=== PATIENT | female | born 1990 | race Caucasian/White ===

== ENCOUNTER 2019-01-28 08:12 | Inpatient (IN) | payer BC ==
[2019-01-28] MEDS ORDERED: LACTATED RINGER'S 1,000 ML IV (09:13)
[2019-01-28] MEDS ORDERED: LIDOCAINE 1% (MPF) 30 ML INJ INJ (09:30)
[2019-01-28] MEDS ORDERED: METHYLERGONOVINE 0.2 MG INJ IM (09:30)
[2019-01-28] MEDS ORDERED: IBUPROFEN 600 MG TAB PO (09:30)
[2019-01-28] MEDS ORDERED: OXYTOCIN 30 UNITS/LR 500 ML IV (09:30)
[2019-01-28] MEDS ORDERED: MISOPROSTOL 200 MCG TAB PR (09:30)
[2019-01-28] MEDS: LACTATED RINGER'S 1,000 ML IV ×2 (09:42→16:17)
[2019-01-28 09:59] LABS: ADD MAN DIFF? NO
[2019-01-28 10:07] LABS: WHITE BLOOD COUNT 9.1 10^3/ul (4.8-10.8)
[2019-01-28 10:07] LABS: BASOPHILS % 0.2 % (0.0-2.0); EOSINOPHILS # 0.1 10^3/ul (0.0-0.5); EOSINOPHILS % 1.2 % (0.0-7.0); HEMATOCRIT 34.5 % (37.0-47.0); HEMOGLOBIN 11.9 g/dl (12.0-16.0); LYMPHOCYTES # 2.6 10^3/ul (0.8-2.9); LYMPHOCYTES % 28.9 % (15.0-51.0); MEAN CORPUSCULAR HEMOGLOBIN 30.2 pg (29.0-33.0); MEAN CORPUSCULAR HGB CONC 34.5 g/dl (32.0-37.0); MEAN CORPUSCULAR VOLUME 87.6 fl (82.0-101.0); MEAN PLATELET VOLUME 10.5 fl (7.4-10.4); MONOCYTE # 0.7 10^3/ul (0.3-0.9); MONOCYTES % 7.3 % (0.0-11.0); NEUTROPHIL # 5.6 10^3/ul (1.6-7.5); NEUTROPHILS % 61.7 % (39.0-77.0); PLATELET COUNT 288 10^3/UL (140-415); RED BLOOD COUNT 3.94 10^6/ul (4.20-5.40); RED CELL DISTRIBUTION WIDTH 13.2 % (11.5-14.5)
[2019-01-28 10:22] LABS: INR 0.99; PROTIME 13.2 Sec (11.9-14.9)
[2019-01-28 10:23] LABS: PARTIAL THROMBOPLASTIN TIME 26.3 Sec (23.0-35.0)
[2019-01-28] MEDS: MISOPROSTOL 50 MCG CAPSULE PO ×2 (12:38→21:47)
[2019-01-28 14:58] LABS: RAPID PLASMA REAGIN NONREACTIVE (NR)
[2019-01-28 22:55] LABS: HEPATITIS B SURFACE ANTIGEN NEGATIVE (NEGATIVE)
[2019-01-29] MEDS: LACTATED RINGER'S 1,000 ML IV ×3 (00:04→16:37)
[2019-01-29] MEDS: MISOPROSTOL 50 MCG CAPSULE PO ×5 (02:20→22:06)
[2019-01-29] MEDS: BUTORPHANOL 2 MG INJ IV (22:38)
[2019-01-29] MEDS: OXYTOCIN 30 UNITS/LR 500 ML IV (22:39)
[2019-01-30] MEDS: LACTATED RINGER'S 1,000 ML IV ×4 (00:21→17:15)
[2019-01-30] MEDS ORDERED: FENTAnyl 2MCG/ML-ROPIV 0.2% 100 ML (02:13)
[2019-01-30] MEDS ORDERED: ONDANSETRON 4 MG INJ IV (06:00)
[2019-01-30] MEDS ORDERED: NALOXONE (0.4 MG/ML) INJ IV (06:00)
[2019-01-30] MEDS ORDERED: NALBUPHINE HCL (10 MG/1 ML) INJ IV (06:00)
[2019-01-30] MEDS: AMPICILLIN 2 GM/NS (PMX) 100 ML IVPB (08:23)
[2019-01-30] MEDS: FENTAnyl 2MCG/ML-ROPIV 0.2% 100 ML BAG EPI ×2 (09:33→15:16)
[2019-01-30] MEDS: AMPICILLIN 1 GM/NS (PMX) 50 ML IVPB ×2 (15:16→19:04)
[2019-01-30] MEDS: OXYTOCIN 30 UNITS/LR 500 ML IV ×3 (18:53→23:17)
[2019-01-30] MEDS: MINERAL OIL LIGHT 10 ML VIAL TOP (22:24)
[2019-01-30] MEDS: CARBOPROST 250 MCG INJ IM (22:24)
[2019-01-30] MEDS: KETOROLAC 30 MG INJ IV (22:33)
[2019-01-30] MEDS: ACETAMINOPHEN 500 MG TAB PO (22:33)
[2019-01-31] MEDS ORDERED: MISOPROSTOL 200 MCG TAB PR (00:30)
[2019-01-31] MEDS ORDERED: ZOLPIDEM 5 MG TAB PO (00:30)
[2019-01-31] MEDS ORDERED: OXYTOCIN 30 UNITS/LR 500 ML IV (00:30)
[2019-01-31] MEDS: CEPHALEXIN 500 MG CAP PO ×5 (00:30→23:50)
[2019-01-31] MEDS ORDERED: METHYLERGONOVINE 0.2 MG INJ IM (00:30)
[2019-01-31] MEDS ORDERED: HYDROCODONE/APAP (5/325) TAB PO ×2 (00:30)
[2019-01-31] MEDS ORDERED: CARBOPROST 250 MCG INJ IM (00:30)
[2019-01-31] MEDS ORDERED: LANOLIN HPA 1 PKT TOP (00:30)
[2019-01-31] MEDS: LACTATED RINGER'S 1,000 ML IV* ×2 (03:38→11:33)
[2019-01-31] MEDS: IBUPROFEN 600 MG TAB PO ×4 (05:38→23:50)
[2019-01-31] MEDS: BENZOCAINE 20% 56 ML SPRAY TOP (05:38)
[2019-01-31] MEDS: WITCH HAZEL/GLYCERIN PAD PR (05:38)
[2019-01-31 08:27] LABS: WHITE BLOOD COUNT 23.3 10^3/ul (4.8-10.8)
[2019-01-31 08:27] LABS: HEMATOCRIT 21.3 % (37.0-47.0); HEMOGLOBIN 7.4 g/dl (12.0-16.0); MEAN CORPUSCULAR HEMOGLOBIN 30.2 pg (29.0-33.0); MEAN CORPUSCULAR HGB CONC 34.7 g/dl (32.0-37.0); MEAN CORPUSCULAR VOLUME 86.9 fl (82.0-101.0); PLATELET COUNT 212 10^3/UL (140-415); RED BLOOD COUNT 2.45 10^6/ul (4.20-5.40); RED CELL DISTRIBUTION WIDTH 13.4 % (11.5-14.5)
[2019-01-31 08:28] LABS: POSITIVE DIFF @See below
[2019-01-31 08:29] LABS: ADD MAN DIFF? YES
[2019-01-31] MEDS: SENNA/DOCUSATE NA (8.6MG/50MG) TAB PO ×2 (08:50→21:00)
[2019-01-31] MEDS: MAGNESIUM HYDROXIDE 30ML CUP PO ×2 (08:50→21:00)
[2019-01-31 10:20] LABS: ANISOCYTOSIS 1+ (0-0); BAND NEUTROPHILS #M 3.2 10^3/ul (0.0-0.6); BAND NEUTROPHILS % (M) 14 % (0-4); LYMPHOCYTES #M 1.6 10^3/ul (0.8-2.9); LYMPHOCYTES % (M) 7 % (15-51); MICROCYTOSIS 1+ (0-0); MONOCYTE #M 0.4 10^3/ul (0.3-0.9); MONOCYTES % (M) 2 % (0-11); PLATELET ESTIMATE NORMAL; POLYCHROMASIA 1+ (0-0); SEG NEUT #M 18.7 10^3/ul (1.6-7.5); SEGMENTED NEUTROPHILS (M) % 77 % (39-77); SMUDGE%M 2 % (0-0)
[2019-01-31] MEDS: DIBUCAINE 1% 30 GM OINT TOP (12:50)
[2019-02-01] MEDS: IBUPROFEN 600 MG TAB PO ×2 (06:12→13:02)
[2019-02-01] MEDS: CEPHALEXIN 500 MG CAP PO ×2 (06:12→13:02)
[2019-02-01 08:37] LABS: ADD MAN DIFF? NO
[2019-02-01 08:48] LABS: ABNORMAL IP MESSAGE 1; BASOPHILS % 0.3 % (0.0-2.0); EOSINOPHILS # 0.1 10^3/ul (0.0-0.5); EOSINOPHILS % 0.9 % (0.0-7.0); HEMATOCRIT 19.7 % (37.0-47.0); LYMPHOCYTES # 3.5 10^3/ul (0.8-2.9); LYMPHOCYTES % 24.2 % (15.0-51.0); MEAN CORPUSCULAR HEMOGLOBIN 30.5 pg (29.0-33.0); MEAN CORPUSCULAR HGB CONC 34.5 g/dl (32.0-37.0); MEAN CORPUSCULAR VOLUME 88.3 fl (82.0-101.0); MEAN PLATELET VOLUME 10.4 fl (7.4-10.4); MONOCYTE # 0.9 10^3/ul (0.3-0.9); MONOCYTES % 6.2 % (0.0-11.0); NEUTROPHIL # 9.9 10^3/ul (1.6-7.5); NEUTROPHILS % 67.6 % (39.0-77.0); PLATELET COUNT 224 10^3/UL (140-415); RED BLOOD COUNT 2.23 10^6/ul (4.20-5.40); RED CELL DISTRIBUTION WIDTH 13.8 % (11.5-14.5)
[2019-02-01 08:48] LABS: WHITE BLOOD COUNT 14.6 10^3/ul (4.8-10.8)
[2019-02-01 08:55] LABS: HEMOGLOBIN 6.8 g/dl (12.0-16.0)
[2019-02-01 08:56] LABS: POSITIVE DIFF @See below
[2019-02-01] MEDS: MAGNESIUM HYDROXIDE 30ML CUP PO (09:00)
[2019-02-01] MEDS ORDERED: MEASLES,MUMPS,RUBELLA VACCINE INJ SC* (09:00)
[2019-02-01] MEDS: SENNA/DOCUSATE NA (8.6MG/50MG) TAB PO (09:00)
[2019-02-01] MEDS ORDERED: DIPHTH/TET/ACEL PERTUSS (ADULT) 0.5 ML VIAL IM* (09:00)
[2019-02-01] MEDS: VARICELLA VACCINE LIVE/PF 1,350 UNIT/0.5 ML ML SC* (09:00)
[2019-02-01 09:53] LABS: ANISOCYTOSIS 2+ (0-0); BAND NEUTROPHILS #M 3.2 10^3/ul (0.0-0.6); BAND NEUTROPHILS % (M) 22 % (0-4); EOSINOPHILS % (M) 1 % (0-7); LYMPHOCYTES #M 3.5 10^3/ul (0.8-2.9); LYMPHOCYTES % (M) 24 % (15-51); MICROCYTOSIS 2+ (0-0); MONOCYTE #M 0.4 10^3/ul (0.3-0.9); MONOCYTES % (M) 3 % (0-11); PLATELET ESTIMATE NORMAL; POLYCHROMASIA 1+ (0-0); REACTIVE LYMPHOCYTES #M 0.2 10^3/ul (0.0-0.0); REACTIVE LYMPHOCYTES% (M) 2 % (0-0); SEG NEUT #M 7.5 10^3/ul (1.6-7.5); SEGMENTED NEUTROPHILS (M) % 48 % (39-77); SMUDGE%M 2 % (0-0)
== END 2019-02-01 17:49 | disposition home or self-care (01) | DRG 807 ==
LOC: PP1 01-31 00:01 → L-D 08:12
PROVIDERS: Obstetrics & Gynecology
PROC: 10D07Z6 Extraction of Products of Conception, Vacuum, Via Natural or Artificial Opening (ICD-10-PCS; principal; 2019-01-30)
PROC: 0W8NXZZ Division of Female Perineum, External Approach (ICD-10-PCS; 2019-01-30)
DX: O48.0 Post-term pregnancy (principal); O66.5 Attempted application of vacuum extractor and forceps; O76 Abnormality in fetal heart rate and rhythm complicating labor and delivery; Z37.0 Single live birth; Z3A.40 40 weeks gestation of pregnancy
CPT/HCPCS: 62322; 76815; 85025; 85610; 85730; 86592; 86900; 86901; 87340; 90716; 99464